=== PATIENT | male | born 1950 | race Caucasian/White ===

== ENCOUNTER 2018-09-04 01:44 | Observation (INO) ==
[2018-09-04] MEDS ORDERED: CARDIZEM IV ONE (03:23)
--- NOTE | 2018-09-04 03:52 | PROVIDER DOCUMENTATION ---
HPI-General Adult - General Chief Complaint: Palpitations Stated Complaint: HEART PALP/SOB Time Seen by Provider: 09/04/18 03:15 Source: patient Allergies/Adverse Reactions: Patient Allergies Allergy/AdvReac Type Severity Reaction Status Date / Time No Known Allergies Allergy Verified 09/04/18 05:18 Home Medications: Home Medication List Medication Instructions Recorded Confirmed Last Taken Type Amlodipine [Norvasc] 1 tab PO QAM 09/04/18 09/04/18 Unknown History Atorvastatin Calcium [Lipitor] 1 tab PO QPM 09/04/18 09/04/18 Unknown History Carvedilol [Coreg] 1 tab PO BID 09/04/18 09/04/18 Unknown History Losartan/Hydrochlorothiazide 1 tab PO QAM 09/04/18 09/04/18 Unknown History [Losartan-Hctz 100-25 mg Tab] Metformin HCl 1 tab PO BID 09/04/18 09/04/18 Unknown History Potassium Chloride E.r. [Klor-Con] 1 tab PO QAM 09/04/18 09/04/18 Unknown History Tamsulosin [Flomax] 1 cap PO QAM 09/04/18 09/04/18 Unknown History - History of Present Illness -Gen Adult Nature of Presenting Problems: 68 y/o M presents to the ED complaining of dyspnea. States about 1 month ago he has a cold with congesiton and a cough and states this cough has persisted but has improved. States over the past week he has been having increased dyspnea particularly with exertion and states a month ago he could walk many block without difficulty and now can't walk a few yards without marked shortness of breath. No fever, no chest pain, some palpitations. no leg pain or swelling. States he saw his pcp for this yesterday and a holter was placed but states he was worried so he came to the ED Tonight. Review of Systems - Adult - REVIEW OF SYSTEMS - ADULT Constitutional: reports: no symptoms reported Eyes: reports: no symptoms reported Ears, Nose, Mouth & Throat: reports: no symptoms reported Cardiovascular: reports: palpitations. denies: chest pain Respiratory: reports: cough, shortness of breath Gastrointestinal: reports: no symptoms reported Genitourinary: reports: no symptoms reported Musculoskeletal: reports: no symptoms reported Integumentary: reports: no symptoms reported Neurological: reports: no symptoms reported Psychiatric: reports: no symptoms reported Endocrine: reports: no symptoms reported Hematologic/Lymphatic: reports: no symptoms reported Allergic/Immunologic: reports: no symptoms reported All Other Systems: Reviewed and Negative Past History - Adult - PAST MEDICAL HISTORY-ADULT Review of Records: reports: Old Records Reviewed, Nursing Assessment Review, Me dications Reviewed, Social history reviewed & non-contributory. Cardiovascular: reports: HTN, hyperlipidemia. denies: blood clots Respiratory: reports: sleep apnea Musculoskeletal: reports: arthritis Psychiatric: reports: depression - PRIOR SURGERIES/PROCEDURES Surgical/Procedure History: reports: joint replacement (RTKA), other (cataract) - IMMUNIZATION STATUS Childhood Immunizations: See Nurse Assessment Flu Vaccine: See Nurse Assessment - FAMILY HISTORY Family History: reviewed, not pertinent Physical Exam-General - PHYSICAL EXAM-ADULT Initial Vital Signs Reviewed: Yes - CONSTITUTIONAL General Appearance: appears well, alert, no apparent distress - EYES Eyes: PERRL/EOMI - HEAD, EARS, NOSE, MOUTH & THROAT HENMT: normocephalic/atraumatic, moist mucous membranes, normal ENT inspection - NECK Neck: non-tender, full range of motion, supple - RESPIRATORY Respiratory: chest non-tender, lungs clear, normal breath sounds - CARDIOVASCULAR Cardiovascular: normal peripheral pulses, regular rate, rhythm, no edema, no JVD - GASTROINTESTINAL (ABDOMEN) Abdominal Exam: non tender, soft - MUSCULOSKELETAL Back Exam: no CVA tenderness, no vertebral tenderness Extremity: normal range of motion, non-tender, normal inspection, no pedal edema - SKIN Integumentary: normal turgor, warm/dry - NEUROLOGIC Neurologic: grossly normal, no motor/sensory deficits - PSYCHIATRIC Psych/Mental Status: normal mood/affect, normal thought content, normal thought process, oriented x 3 Progress - PLAN OF CARE/RESULTS Progress/Plan/Lab Results: Vital Signs - 8 hr 09/04/18 02:00 Temperature 98.9 F Pulse Rate 89 Respiratory Rate 15 Blood Pressure 130/95 O2 Sat by Pulse Oximetry 100 Orders Category Date Time Status IV Insertion ORDERED Care 09/04/18 03:21 Active cxr [CHEST-1 VIEW] [RAD] Stat Exams 09/04/18 03:21 Ordered BASIC METABOLIC PANEL [CHEM] Stat Lab 09/04/18 03:21 Uncollected CBC WITH DIFF [HEME] Stat Lab 09/04/18 03:21 Uncollected PRO B-NATRIURETIC PEPTIDE Stat Lab 09/04/18 03:21 Uncollected TROPONIN T Stat Lab 09/04/18 03:21 Uncollected Diltiazem [Cardizem] Med 09/04/18 03:23 Discontinued 10 mg IV NOW ONE dyspnea with cough and palpititons. pt in new onset afib with rvr, will treat and will further evaluate for causes includig but not limited to ACS, pna, ptx, pe, chf, new onset afib. Result Diagrams: 09/04/18 04:15 09/04/18 04:15 - REASSESSMENT Reassessment #1 Status: improving (heart rate improved, dyspnea improved likely due to new onset afib and chf. treated with ntg paste and lasix and will admit. Discussed case with Dr. Montesinos, hospitalist, who will see and admit pt.) - EKG 1 Time of EKG reading by physician:: 02:26 EKG Read and Signed by:: Brandy Booker EKG Interpretation (*Must complete 3 of following elements*): Abnormal (atrial fibrillation with rvr, rate 102, no acute st changes normal axis and intervals) - XRAY 1 XRAY Study: Chest Impression: Abnormal (moderate pulmonary edema, no infiltrate, no ptx) Departure - Departure Date of Disposition Decision: 09/04/18 Time of Disposition Decision: 06:03 DIAGNOSIS: Atrial fibrillation Qualifiers: Atrial fibrillation type: unspecified Qualified Code(s): I48.91 - Unspecified atrial fibrillation CHF (congestive heart failure) Qualifiers: Heart failure type: unspecified Heart failure chronicity: acute Qualified Code(s): I50.9 - Heart failure, unspecified Disposition: ADMITTED INPATIENT 09 Certified Medical Emergency: Emergent Condition: Fair Referrals and Follow-Ups: Simon Roca MD [Primary Care Provider] - - Critical Care Note This patient required my direct & personal management of CC.: No Attestation - Physician/ JOVANA Attestation Patient care was provided by Advanced Practice Provider:: No The physician spent face to face time with patient:: Yes Advanced Practice Provider documentation review:: Supervising physician onsite and consulted in the evaluation and care of this patient. The physician did have a face to face encounter with the patient.
[2018-09-04 04:54] LABS: BASO# 0.02 X1000 (0.0-0.2); BASO% 0.3 % (0.0-0.8); EOS# 0.22 X1000 (0.0-0.7); EOS% 2.9 % (0.0-10.0); HEMATOCRIT 41.9 % (42.0-52.0); HEMOGLOBIN 13.6 g/dL (14.0-18.0); LYMPH# 1.93 X1000 (1.2-3.4); LYMPH% 25.7 % (20.5-51.1); MCH 31.2 PG (27-31); MCHC 32.5 g/dL (33-37); MCV 96.1 FL (81-99); MONO# 0.77 X1000 (0.11-0.59); MONO% 10.3 % (1.7-9.3); NEUT# 4.56 X1000 (1.4-6.5); NEUT% 60.8 % (42.2-75.2); PLT 189 X1000 (130-400); RBC 4.36 XMIL (4.7-6.1); RDW 14.9 % (11.5-14.5)
[2018-09-04 05:18] LABS: AGAP 12; BUN 23 mg/dL (8-22); CALCIUM 8.6 mg/dL (8.8-10.2); CHLORIDE 105 mmol/L (98-107); COSMO 291; CREATININE 0.8 mg/dL (0.7-1.2); ESTIMATED GFR > 60; GLUCOSE 108 mg/dL (70-104); POTASSIUM 4.6 mmol/L (3.5-5.1); SODIUM 144 mmol/L (136-145); TCO2 27 mmol/L (25-35)
[2018-09-04] MEDS ORDERED: NITROGLYCERIN TOP ONE (05:40)
[2018-09-04] MEDS ORDERED: LASIX IV ONE (05:40)
--- NOTE | 2018-09-04 06:55 | EKG Report ---
Test Performed on : 09/04/2018 02:10:30 AM Test Reason : ED. NO EKG ORDER FOR MUSE Blood Pressure : / mmHG Vent. Rate : 102 BPM Atrial Rate : 104 BPM P-R Int : 000 ms QRS Dur : 162 ms QT Int : 394 ms P-R-T Axes : 000 -33 055 degrees QTc Int : 513 ms Atrial fibrillation. with rapid ventricular response. Left axis deviation Nonspecific intraventricular block Abnormal ECG When compared with ECG of 15-SEP-2015 12:37, Atrial fibrillation. has replaced Sinus rhythm. Questionable change in QRS axis Unconfirmed Result
--- NOTE | 2018-09-04 07:14 | Diag Imaging Result Doc PS360 ---
EXAM: CHEST-1 VIEW HISTORY: dyspnea TECHNIQUE: Chest single view COMPARISON: None. FINDINGS: The lungs are well expanded. The heart is enlarged. The vessels are not distended. There are no infiltrates. No effusion identified. IMPRESSION: Cardiomegaly, but no definite congestive failure. Follow-up PA and lateral recommended. Electronically signed by Jayant Fernandez 09/04/2018 7:12 AM
[2018-09-04 09:57] LABS: HEMOGLOBIN A1C 5.8 % (4.8-6.0)
[2018-09-04] MEDS: ASPIRIN PO SCH (10:12)
[2018-09-04 10:25] LABS: INR 0.99; PROTIME 13.9 Seconds (11.0-16.0)
[2018-09-04 11:10] LABS: ALB/GLOB RATIO 0.9; ALBUMIN 3.6 g/dL (3.5-5.0); DIRECT BILIRUBIN 0.2 mg/dL (0.00-0.20); TOTAL BILIRUBIN 0.84 mg/dL (0.20-1.00); TOTAL PROTEIN 7.7 g/dL (6.3-8.3)
[2018-09-04] MEDS: DUONEB (A & A) INH SCH ×4 (11:33→23:15)
--- NOTE | 2018-09-04 11:47 | HISTORY AND PHYSICAL ---
PRIMARY CARE PROVIDER: Dr. Simon Roca PEDIATRIC DIETICIAN: Dr. Eyad Gilmore in [place], [place]. CHIEF COMPLAINT: Dyspnea. HISTORY OF PRESENT ILLNESS: Mr. Fuller is a 68-year-old male with a history of morbid obesity, diabetes mellitus type 2, hypertension, hyperlipidemia, and was recently diagnosed with atrial fibrillation last week by Dr. Roca per his report. He states that over the last month he has gone from being able to walk a mile without shortness of breath to not being able to 100 feet without having to stop due to shortness of breath. He has had mild lower extremity edema, worsening orthopnea, and occasional PND. He denies having any chest pain but reports palpitations at times. He actually saw Dr. Roca yesterday who placed him on a Holter monitor but he decided to come to the E.R. for evaluation later on yesterday evening due to the symptoms. In the E.R. a chest x-ray showed cardiomegaly but no evidence of pulmonary edema. A followup was recommended. Laboratory data did show a proBNP of 1586. As such, he is going to be admitted for further treatment and evaluation. PAST MEDICAL HISTORY: 1. Hypertension. 2. Hyperlipidemia. 3. Diabetes mellitus. 4. Question of reduced left ventricular function, he states that Dr. Gilmore has told him in the past that his EF is reduced. He does not know the exact percentage. 5. BPH. PAST SURGICAL HISTORY: Right knee arthroplasty, lumbar spine fusion, cataract surgery, and left arm surgery. SOCIAL HISTORY: He is . He has grown children. He is retired. He has a distant history of smoking. Currently no tobacco or drug use. He drinks alcohol once a month socially. FAMILY HISTORY: Both parents are . He is unclear of how they exactly. He just said old age. No history of heart disease that he knows of. REVIEW OF SYSTEMS: A 14 point review of systems was obtained and found to be negative with the exception of the HPI. ALLERGIES: No known drug allergies. HOME MEDICATIONS: 1. Coreg 6.25 mg p.o. b.i.d. 2. Flomax 0.4 mg p.o. every morning. 3. Ibuprofen 600 mg p.o. daily. 4. Klor-Con 10 mEq p.o. every morning. 5. Lipitor 80 mg p.o. nightly. 6. Losartan hydrochlorothiazide one p.o. every morning. 7. Metformin 500 mg p.o. b.i.d. 8. Norvasc 5 mg every morning. PHYSICAL EXAMINATION: VITAL SIGNS: Blood pressure is 123/80, heart rate 77, respiratory rate 20, O2 sat 96% on room air, and temperature 97.9. GENERAL: This is a morbidly obese male lying in a hospital bed in no acute distress. NEUROLOGIC: He is awake, alert, and oriented. He follows commands with no focal deficits. HEENT: The head is atraumatic and normocephalic. Pupils are equal, round, and reactive to light. Oral mucosa is dry. NECK: Trachea is midline. There is no JVD. CHEST: Diminished at the bases but clear to auscultation. CV: Regular rate and rhythm. S1 and S2 are noted. Heart sounds are distant but a faint 1-2/6 systolic ejection murmur is noted. GI: Soft, rotund, and nondistended. Bowel sounds are hypoactive. EXTREMITIES: Trace to 1+ edema bilaterally. DIAGNOSTIC DATA: Chest x-ray shows cardiomegaly. No infiltrates. No effusion. A followup PA and lateral is recommended. EKG: Atrial fibrillation with a rapid ventricular response. Nonspecific intraventricular conduction delay. WBC is 7.5, hemoglobin 13.6, hematocrit 41.9, and platelet count 189. Sodium is 144, potassium 4.6, chloride 105, CO2 27, anion gap 12, BUN 23, creatinine 0.8, glucose 108, and calcium 8.6. Troponin is negative times 1 set. ProBNP is 1586. ASSESSMENT AND PLAN: 1. Apparent new onset of atrial fibrillation with a very mild rapid ventricular response: We will continue metoprolol for rate control. He is currently in acceptable range of less than 100. We will trend his cardiac enzymes, check thyroid function, and check an echocardiogram. His CHADSVASC is 4 if you consider congestive heart failure. We will start him on Lovenox 1 mg/kg and monitor closely on telemetry. 2. Apparent congestive heart failure exacerbation: The patient is clinically in at least mild congestive heart failure with orthopnea, PND, lower extremity edema, and significant dyspnea. We will check an echo, trend cardiac enzymes, start Lasix 40 mg IV every 12 hours, follow strict input and output and daily weights, and continue Coreg and Losartan. 3. Hypertension: Continue losartan. We will drop the hydrochlorothiazide as we have added Lasix. We do not want to over diurese. Further recommendations will be made after EF testing and stress testing. 4. Diabetes mellitus: We will add pattern sugar and sliding scale insulin and check a hemoglobin A1c. 5. Deep vein thrombosis prophylaxis with Lovenox. Further recommendations to follow. Dictated by ANGELITA Kwok for Armin Watts MD cc: ANGELITA Kwok MD Michael Butler Malcolm R. Hendricks, MD
[2018-09-04] MEDS: HUMULIN R SUBQ SCH ×3 (12:11→21:58)
[2018-09-04] MEDS: LOVENOX SUBQ SCH ×2 (12:23→21:58)
--- NOTE | 2018-09-04 15:03 | ECHO REPORT ---
ORDER DATE: 09/04/2018 INDICATION: Hypertension, hyperlipidemia, palpitations, dyspnea on exertion. FINDINGS: This was an extremely difficult, poor quality study. Very limited resolution of the endocardial borders. 1. The right atrium appears mildly enlarged at 4.2 cm. 2. Mild tricuspid regurgitation, and RV systolic pressure is estimated at 42 mmHg. 3. The right ventricle was very difficult to visualize. It does appear to be enlarged. 4. No significant pulmonic insufficiency. 5. Mild left atrial enlargement at 4 cm. 6. No mitral valve prolapse. Difficult to estimate mitral regurgitation but appears to be mild. No clear evidence of mitral stenosis. 7. The left ventricle appears dilated with an end-diastolic dimension of 6.2 cm. I cannot accurately assess for LVH as endocardial borders are very poorly visualized. The LV systolic function is very difficult to estimate, even with use of echo contrast. It does appear to be reduced over all. Would consider an alternative modality for estimation of ejection fraction. 8. The aortic valve opens well. There is no evidence of stenosis or insufficiency. 9. The aorta is poorly visualized. 10. No clear evidence of pericardial effusion on this study. cc: MD Armin Houston MD
--- NOTE | 2018-09-04 19:57 | HISTORY AND PHYSICAL ---
ADDENDUM: Mr. Fuller got admitted yesterday because of ongoing shortness of breath for the past 2 weeks, which has been progressively getting worse. He has had investigations done at his primary care doctor's office including a stress test, which is very pathological. I have seen and examined him. His physical exam is positive for 2+ pedal edema and some positive hepatojugular reflux. Chest also seems to have some diffuse posterior crackles. His EKG reveals atrial fibrillation with rapid ventricular response. His pulse rate at this point seems to be under control. A chest x-ray shows cardiomegaly. No definite congestive failure. An echocardiogram, which was done today shows they could not accurately assess the systolic function. However, stress test from his primary care doctor's (Dr. Simon Roca) office suggested that there was a fixed defect inferior and inferior apical myocardium consistent with prior dominant right coronary artery infarct. The ejection fraction was 31%, significantly decreased. ASSESSMENT: 1. Acute congestive heart failure with ejection fraction of 31% on stress test. The stress test also suggests that this is due to coronary artery disease (ischemic cardiomyopathy). I think he needs to be evaluated further including possibility of a left heart catheterization. We are going to ask Cardiology to evaluate him. For now he will be on diuretic therapy, beta laura, ARB, aspirin, and will be started also on statin. 2. Atrial fibrillation, rapid ventricular response on presentation. The patient continues to be in atrial fibrillation but rate seems to be better controlled. He is on beta laura. We would wait for Cardiology's further recommendations on this. 3. History of obstructive sleep apnea noted. Please refer to the details of the H and P in the chart, which has been dictated by the INSTRUCTIONAL ASSISTANT. cc: Armin Watts MD
[2018-09-04] MEDS: LASIX IV SCH (21:58)
[2018-09-04] MEDS: COREG PO SCH (21:58)
[2018-09-04] MEDS: LIPITOR PO SCH (21:58)
[2018-09-05] MEDS: DUONEB (A & A) INH SCH ×6 (03:25→23:14)
[2018-09-05] MEDS: HUMULIN R SUBQ SCH ×4 (06:47→20:31)
[2018-09-05 07:07] LABS: HEMATOCRIT 42.3 % (42.0-52.0); HEMOGLOBIN 13.5 g/dL (14.0-18.0); MCH 31.2 PG (27-31); MCHC 31.9 g/dL (33-37); MCV 97.7 FL (81-99); MPV 10.8 FL (7.4-10.4); RBC 4.33 XMIL (4.7-6.1); RDW 14.9 % (11.5-14.5); WBC 6.9 X1000 (4.8-10.8)
[2018-09-05 07:47] LABS: AGAP 14; BUN 18 mg/dL (8-22); CALCIUM 8.3 mg/dL (8.8-10.2); CHLORIDE 103 mmol/L (98-107); COSMO 289; CREATININE 0.8 mg/dL (0.7-1.2); ESTIMATED GFR > 60; GLUCOSE 101 mg/dL (70-104); MAGNESIUM 1.9 mg/dL (1.5-2.7); POTASSIUM 3.7 mmol/L (3.5-5.1); SODIUM 144 mmol/L (136-145); TCO2 27 mmol/L (25-35)
[2018-09-05] MEDS: COREG PO SCH ×2 (09:01→20:32)
[2018-09-05] MEDS: FLOMAX PO SCH (09:01)
[2018-09-05] MEDS: COZAAR PO SCH (09:01)
[2018-09-05] MEDS: ASPIRIN PO SCH (09:01)
[2018-09-05] MEDS: LASIX IV SCH ×2 (09:03→20:31)
[2018-09-05] MEDS: LOVENOX SUBQ SCH ×2 (09:07→09:51)
[2018-09-05] MEDS ORDERED: LANOXIN PO ONE ×2 (12:22→18:00)
--- NOTE | 2018-09-05 13:41 | CARDIOLOGY CONSULTATION ---
DATE: 09/05/2018 HISTORY OF PRESENT ILLNESS: A 68-year-old gentleman with history of hypertension, diabetes, nonischemic cardiomyopathy. Was recently diagnosed to have atrial fibrillation. Underwent a stress test. The patient comes with complaints of increasing shortness of breath which is grade 2 to 3 dyspnea on exertion. There is no orthopnea. He has had recently worsening of symptoms of paroxysmal nocturnal dyspnea. At the time of his admission, he was orthopneic. He denies any chest pain. He has had chronic longstanding pedal edema which was for 10 years; however, over the last 1 year, pedal edema worsened. He came to the emergency room. Chest x-ray revealed cardiomegaly. His proBNP was abnormal at 1586. Electrocardiogram revealed atrial fibrillation with interventricular conduction delay, QRS duration of 150 to 160. He had a stress test done in Dr. Roca' office. REVIEW OF SYSTEM: A 14-point review of systems was done.Gastrointestinal: There is no history of nausea. There is no history of vomiting. There is no history of hematemesis or melena. Central nervous system: No focal weakness to suggest a CVA or TIA. Genitourinary: There is no dysuria or hematuria. Respiratory System: There is no history of cough, expectoration, hemoptysis. There is no history of fevers or chills. PAST MEDICAL HISTORY: 1. Hypertension. 2. Hyperlipidemia. 3. Diabetes. 4. Last cardiac catheterization in 2016 and in [place] revealed left main was short. Coronary arteries were widely patent. Right dominant system. Left ventricular ejection fraction 45%. Patient had nonischemic cardiomyopathy, ejection fraction of 45%. 5. Chronic back pain. 6. He recently underwent a Cardiolite stress test in Dr. Roca' office. Per report, there was no evidence of ischemia. Fixed defects were noted in the inferior, inferoapical segment consistent with a cardiomyopathy picture. There was, however, no ischemia. Left ventricular ejection fraction 31%. 7. Last echocardiogram 2018, ejection fraction of 30% to 35%. HOME MEDICATIONS: Include. 1. Lipitor 80 mg a day. 2. Coreg 6.25 b.i.d. 3. Losartan/hydrochlorothiazide. 4. Metformin 500 b.i.d. 5. Tamsulosin. 6. Ibuprofen. 7. Amlodipine 5. 8. Potassium supplements. SOCIAL HISTORY: He does not smoke. No history of alcohol abuse. PAST SURGICAL HISTORY: Right knee arthroplasty, lumbar fusion surgery, cataract surgery, left arm surgery. PHYSICAL EXAMINATION: Vital Signs: Blood pressure 123/80. Cardiovascular system: Normal jugular venous pressure. First and second heart sounds were heard. There was no S3 gallop. There was faint murmur. Respiratory System: Distant breath sounds. There were no crepitations or rhonchi. Abdomen: Soft, nontender. There was no guarding or rigidity. Bowel sounds were heard. Central nervous system: Alert and oriented. Was moving all 4 extremities. Extremities: Bilateral pitting pedal edema up to his brown. LABORATORY EXAMINATION: Revealed his cardiac enzymes were negative. ProBNP abnormal at 1586. Sodium 144, potassium 4.6, BUN 23, creatinine 0.8. ASSESSMENT AND PLAN: Mr. Darryl Fuller is a 68-year-old gentleman who is admitted with increasing shortness of breath, paroxysmal nocturnal dyspnea, orthopnea. Has history of hypertension, diabetes, nonischemic cardiomyopathy, hyperlipidemia. He is admitted. Since starting him on medications, he has felt better. However, his symptoms of shortness of breath are still present. He denies any chest pain. RECOMMENDATIONS: From a cardiovascular standpoint: 1. He has had nonischemic cardiomyopathy with a left heart catheterization in 2016 which was normal. As far as coronary arteries are concerned, stress test done recently did not reveal any evidence of ischemia. We will manage him medically. 2. His echocardiogram could not be read given it was a very suboptimal test in spite of using Optison. Given this, I will set him up to have a MUGA scan on Friday. 3. As far as medications are concerned, for hypertension I will discontinue the Norvasc, continue with losartan 50 mg a day, and I will increase the dope dosage of Coreg to 12.5 twice a day. 4. Atrial fibrillation. This is recent onset atrial fibrillation, was noted in Dr. Roca' office as well. He was started on digoxin. Would recommend continuing digoxin. 5. He has an elevated [id number] score. We will start him on Eliquis 5 mg to be taken twice a day. I will discontinue the Lovenox and the aspirin as well. Thank you for the consult. We will follow hospital course. cc: Jake Quiñonez MD
--- NOTE | 2018-09-05 15:07 | PROGRESS NOTE ---
DATE: 09/05/2018 SUBJECTIVE: This morning Mr. Fuller refers to be doing slightly okay, but has some shortness of breath and feeling of uneasiness. I was called earlier on today because his pulse was remarkably high in the 140s. His home medications were given including the carvedilol, and it has brought it down to somewhere between 110 to 120, but it goes up and down. OBJECTIVE: Mr. Fuller is a 68-year-old gentleman. He is in bed. He does not seem to be in any distress. Mucosa is pink and moist. Anicteric. Acyanotic.Neck: Supple. Chest: Air entry was bilaterally reduced. A few crackles in the posterior lung barros. Cardiovascular: Irregularly irregular and tachycardic. Abdomen: Soft. Distended but nontender. Bowel sounds present. Extremities: About 1 to 2+ pedal edema. ELASTIC YARN TWISTER: Patient is awake, alert, and oriented. LABORATORY DATA: WBC 6.90, hemoglobin is 13.5, and platelet count of 180,000. Chemistry is also reviewed and is completely normal. ASSESSMENT: 1. Acute congestive heart failure with ejection fraction of 31% on stress test. The patient is currently on diuretic therapy, JOSELYN inhibitor and beta laura. 2. Atrial fibrillation with rapid ventricular response. The patient's heart rate was slightly better controlled yesterday. However, early this morning it has been all above 120 so we are going to give him a loading dose of digoxin, and transfer him to the cardiac floor. Suspecting that the underlying condition could be coronary artery disease, I think Cardiology would have to intervene pending the recommendations. 3. Severe ischemic cardiomyopathy. The patient has a stress test that is remarkably abnormal, especially in the territory of the RCA. Will be pending their recommendations from surgery if left heart catheterization will be done today or the patient will need to be transfer. 4. History of obstructive sleep apnea. Patient uses CPAP at home. We are going to continue using that. 5. Morbid obesity with BMI of 40.7/ weight loss management advised. So, today, Mr. Fuller continues to be symptomatic with shortness of breath and heart rate is under control so we are going to transfer him to the cardiac floor. We are going to start him on loading dose of digoxin and see if that gets better. We will be pending Cardiology evaluation and recommendations today. cc: Armin Watts MD [facility]
[2018-09-05] MEDS: ELIQUIS PO SCH (20:32)
[2018-09-05] MEDS: LIPITOR PO SCH (20:32)
[2018-09-06] MEDS: DUONEB (A & A) INH SCH ×6 (03:25→23:27)
[2018-09-06 05:39] LABS: BASO# 0.03 X1000 (0.0-0.2); BASO% 0.4 % (0.0-0.8); EOS# 0.33 X1000 (0.0-0.7); EOS% 4.3 % (0.0-10.0); HEMATOCRIT 43.7 % (42.0-52.0); LYMPH# 1.69 X1000 (1.2-3.4); LYMPH% 22.1 % (20.5-51.1); MCH 30.6 PG (27-31); MCV 95.6 FL (81-99); MONO# 0.84 X1000 (0.11-0.59); MPV 10.9 FL (7.4-10.4); NEUT# 4.76 X1000 (1.4-6.5); NEUT% 62.2 % (42.2-75.2); PLT 201 X1000 (130-400); RBC 4.57 XMIL (4.7-6.1); RDW 14.8 % (11.5-14.5); WBC 7.65 X1000 (4.8-10.8)
[2018-09-06] MEDS: HUMULIN R SUBQ SCH ×4 (06:10→23:10)
[2018-09-06 06:22] LABS: AGAP 11; ALB/GLOB RATIO 1.1; ALBUMIN 3.5 g/dL (3.5-5.0); ALKALINE PHOSPHATASE 74 U/L (32-122); BUN 17 mg/dL (8-22); CALCIUM 8.6 mg/dL (8.8-10.2); CHLORIDE 104 mmol/L (98-107); COSMO 289; ESTIMATED GFR > 60; GLUCOSE 108 mg/dL (70-104); GOT 12 U/L (10-34); GPT 18 U/L (10-44); POTASSIUM 3.5 mmol/L (3.5-5.1); SODIUM 144 mmol/L (136-145); TCO2 29 mmol/L (25-35); TOTAL BILIRUBIN 0.78 mg/dL (0.20-1.00); TOTAL PROTEIN 6.8 g/dL (6.3-8.3)
[2018-09-06] MEDS: LASIX IV SCH ×2 (08:39→20:51)
[2018-09-06] MEDS: ELIQUIS PO SCH ×2 (08:39→20:51)
[2018-09-06] MEDS: COZAAR PO SCH (08:39)
[2018-09-06] MEDS: FLOMAX PO SCH (08:39)
[2018-09-06] MEDS: MUCINEX PO SCH ×2 (08:39→20:51)
[2018-09-06] MEDS: COREG PO SCH ×2 (08:39→20:51)
--- NOTE | 2018-09-06 15:11 | PROGRESS NOTE ---
DATE: 09/06/2018 SUBJECTIVE: This morning, Mr. Fuller refers to be doing okay. He was actually sitting up in the chair at the time of the encounter. He, however, did make mention that he feels overly anxious and occasionally depressed because of what he is going through. was at the bedside at the time of the encounter. OBJECTIVE: Vital Signs: Blood pressure is 104/72, pulse of 94, respirations are 18, temperature is 98.5 degrees. General Examination: Mr. Fuller is a 68-year-old, male. He was sitting up in the bed. His BMI was 41.6. He did not seem to be in distress. HEENT: Mucosa is pink and moist. Anicteric. Acyanotic. Neck: Supple. Chest: Good air entry bilaterally. There are a few crackles in the posterior lung barros. Cardiovascular: Irregularly irregular but seems to be rate controlled. No murmurs. GI: Abdomen is soft. It is distended. Bowel sounds present. Extremities: About 1+ pedal edema. MORNING SHOW HOST: The patient is awake, alert, and oriented. Is and Os: Urine output was 1900 for a negative balance of 3670. The patient current weight is 290. Admitting weight was about 300 pounds so he has been lost about 10 pounds during this hospital course. Laboratory Data: Has been reviewed and it is unremarkable including chemistry is completely normal. TSH is also within normal range. No new x-rays. No new imaging studies this morning. ASSESSMENT: 1. Acute on chronic congestive heart failure. Ejection fraction on stress test from outside facility was 31%. There is a plan for a MUGA scan since echocardiogram could not determine accurately the ejection fraction. The patient is currently on diuretic therapy, JOSELYN, ARBs, and beta laura. Spironolactone was also added by cardiology. 2. Atrial fibrillation with rapid ventricular response. This is better rate controlled. 3. Severe nonischemic cardiomyopathy. The patient seems to have had a left heart catheterization in 2016 which showed normal coronaries. I was made aware of this by cardiology and I saw the report. 4. History of obstructive sleep apnea. Patient uses CPAP at home. We will continue to encourage him to be using it here. 5. Morbid obesity. Weight loss advised. 6. Situational anxiety and depression. We will start the patient on Lexapro at night and as needed Ativan. PLAN: In general, I think Mr. Fuller is adequately diuresing well. His symptoms are getting better. He is moving more. There is a plan for a MUGA scan tomorrow. Once that is done, we will hopefully be able to discharge him. cc: Armin Watts MD
[2018-09-06] MEDS: ALDACTONE PO SCH (15:16)
[2018-09-06] MEDS: LIPITOR PO SCH (20:51)
[2018-09-06] MEDS ORDERED: LEXAPRO PO SCH (21:00)
[2018-09-06] MEDS ORDERED: KLONOPIN PO SCH (21:00)
[2018-09-07] MEDS: DUONEB (A & A) INH SCH ×3 (03:11→11:14)
[2018-09-07 05:28] LABS: HEMATOCRIT 44.8 % (42.0-52.0); HEMOGLOBIN 14.5 g/dL (14.0-18.0); MCHC 32.4 g/dL (33-37); MCV 95.9 FL (81-99); MPV 11.1 FL (7.4-10.4); RBC 4.67 XMIL (4.7-6.1); RDW 14.7 % (11.5-14.5); WBC 6.44 X1000 (4.8-10.8)
[2018-09-07 06:02] LABS: AGAP 6; BUN 17 mg/dL (8-22); CALCIUM 8.6 mg/dL (8.8-10.2); CHLORIDE 104 mmol/L (98-107); COSMO 285; ESTIMATED GFR > 60; GLUCOSE 107 mg/dL (70-104); MAGNESIUM 2.1 mg/dL (1.5-2.7); POTASSIUM 3.7 mmol/L (3.5-5.1); SODIUM 142 mmol/L (136-145); TCO2 32 mmol/L (25-35)
[2018-09-07] MEDS: HUMULIN R SUBQ SCH ×2 (06:22→12:31)
--- NOTE | 2018-09-07 07:00 | EKG Report ---
Test Performed on : 09/05/2018 11:56:41 AM Test Reason : New onset A-Fib. SOB. Blood Pressure : / mmHG Vent. Rate : 101 BPM Atrial Rate : 066 BPM P-R Int : 000 ms QRS Dur : 150 ms QT Int : 390 ms P-R-T Axes : 000 258 112 degrees QTc Int : 505 ms Wide QRS rhythm. with frequent and consecutive premature ventricular complexes. Nonspecific intraventricular block Possible Lateral infarct , age undetermined Abnormal ECG When compared with ECG of 04-SEP-2018 02:10, (Unconfirmed) Wide QRS rhythm. has replaced Atrial fibrillation. Confirmed by Neena MATTHEW, Rohan Mckenzie ([id number]) on 09/09/2018 9:38:36 AM
[2018-09-07] MEDS ORDERED: LANOXIN PO SCH (09:00)
[2018-09-07] MEDS ORDERED: LASIX PO SCH (09:00)
[2018-09-07] MEDS: ALDACTONE PO SCH (11:04)
[2018-09-07] MEDS: MUCINEX PO SCH (11:04)
[2018-09-07] MEDS: FLOMAX PO SCH (11:04)
[2018-09-07] MEDS: ELIQUIS PO SCH (11:04)
[2018-09-07] MEDS: COREG PO SCH (11:04)
[2018-09-07] MEDS: COZAAR PO SCH (11:04)
[2018-09-07 11:26] VITALS: BP 112/76
--- NOTE | 2018-09-07 14:50 | Diag Imaging Result Document ---
PROCEDURE NAME: MUGA (GATED CARDIAC SCAN) - 09/07/2018 INDICATION: Cardiomyopathy. PROCEDURE PERFORMED: Gated heart scan. PROCEDURE IN DETAIL: Mr. Fuller was brought to the nuclear laboratory and had a gated heart scan performed with injection of 23.8 mCi of radiotracer. FINDINGS: This is a difficult study. It was redone on 5 separate occasions. There was difficulty in gating due to the irregularity of the heart rhythm. The ejection fraction was calculated at 21%. This is a poor quality study. cc: MD Jake Houston MD [facility]
--- NOTE | 2018-09-08 07:20 | DISCHARGE SUMMARY ---
ADMISSION DATE: 09/04/2018 DISCHARGE DATE: 09/07/2018 DISPOSITION: Home. FOLLOW-UP: 1. Dr. Simon Roca. 2. Dr. Eyad Gilmore, Extension Supervisor in [place]. CONSULTATION DURING THIS ADMISSION: Cardiology was consulted. Patient was seen by Dr. Quiñonez. INVASIVE PROCEDURES DONE DURING ADMISSION: None. IMAGING STUDIES OF SIGNIFICANCE: 1. Chest x-ray was done which showed cardiomegaly, no definite congestive failure. 2. MUGA scan was also done at the time of the dictation. We are still pending the official report. ADMISSION DIAGNOSES: 1. Apparent new onset atrial fibrillation with rapid ventricular response. 2. Congestive heart failure. 3. Hypertension. 4. Diabetes mellitus. DIAGNOSES AT TIME OF DISCHARGE: 1. Acute on chronic congestive heart failure. Ejection fraction on the stress test from outside facility was 31%. MUGA scan was scheduled for this morning. 2. Atrial fibrillation with RVR of new onset. This has been rate controlled. 3. Severe nonischemic cardiomyopathy. 4. History of obstructive sleep apnea. Patient uses CPAP at home. 5. Morbid obesity with BMI of 40.3. Weight loss management is advised. Situational anxiety and depression, improved. DISCHARGE MEDICATIONS: 1. Atorvastatin 80 mg daily. 2. Carvedilol 6.25 b.i.d. 3. Metformin 500 b.i.d. 4. Tamsulosin 0.4 p.o. daily. 5. Lexapro 20 mg p.o. at bedtime. 6. Aldactone 25 mg p.o. daily. 7. Cozaar 100 mg p.o. daily. 8. Digoxin 125 mcg p.o. daily. 9. Furosemide 40 mg b.i.d. 10. Klonopin 0.25 p.o. daily at bedtime. 11. Eliquis 5 mg b.i.d. PRESENTING COMPLAINT: Shortness of breath. HISTORY OF PRESENTING COMPLAINT: Mr. Fuller is a 68-year-old male with a history of hypertension, dyslipidemia, diabetes and known to have poor EF in the past presented to the emergency department because of progressively worsening shortness of breath on exertion associated with PND and orthopnea. Upon presenting to the emergency department, Mr. Fuller was evaluated including a chest x-ray which showed cardiomegaly. Lab works also revealed pro b of 586. EKG revealed atrial fibrillation with RVR. Mr. Fuller was subsequently admitted to the [facility] and went to the cardiac floor for medical management. HOSPITAL COURSE: Mr. Fuller was admitted to the medical floor. He was found to be in congestive symptoms, and was started on diuretic therapy. Heart rate was managed with rate control strategy, and Cardiology was consulted. Eliquis was also started for stroke prophylaxis because of high Nav's Vasc score. During the hospital course, Mr. Fuller continued to adequately diurese. He actually became negative balance of 4953. His weight came down to 281 from 300 on admission, which was roughly 19 pounds weight loss during the hospital course. Mr. Fuller refers to be feeling a whole lot better today. Echocardiogram was not able to give a detailed evaluation on the EF so a MUGA scan was recommended by Cardiology. This was successfully done today. The result was not available at the time of dictation. Mr. Fuller is however clinically stable. He is nearing euvolemic status, so we think he will be okay to be going home on the current regimen, and to follow up with his automotive sales associate, Dr. Gilmore in about 2 weeks. All the discharge instructions have been discussed with Mr. Fuller, and he voiced an understanding. was also at the bedside and she was also notified. DISCHARGE EXAMINATION: Current vitals at the time of discharge, blood pressure 113/76, pulse 74, respirations 18, and temperature 98 degrees. Physical exam is unremarkable except for mild pedal edema, and few crackles in the posterior lungs. Heart rate is also irregular, but better is rate controlled. TIME SPENT: The time spent for discharge is 33 minutes. cc: MD Dr. Chanelle Ruvalcaba Dr.
== END 2018-09-07 15:56 | disposition home or self-care (01) ==
LOC: ED 01:44 → 4N 01:44 → 3S 09-05 13:37
PROVIDERS: ATTEND Internal Medicine
CPT/HCPCS: 71010; 71045; 78472; 80048; 80053; 80076; 82550; 82948; 83036; 83735; 83880; 84443; 84484; 85025; 85027; 85610; 93005; 93010; 93306; 94640; 94760; 94761; 96374; 96375; 99285; A9270; A9512; C8929; J1650; J1940; Q9957; XXXXX